=== PATIENT | male | born 1995 | race Two or more races ===

== ENCOUNTER 2024-08-10 00:55 | Emergency (ER) | payer OTHER ==
[~2024-08-10] VITALS: Ht 185.4 cm; Wt 72.6 kg
== END 2024-08-10 03:52 | disposition home or self-care (01) ==
LOC: ER 00:57
DX: M43.6 Torticollis (principal); S19.9XXA Unspecified injury of neck, initial encounter; V49.88XA Car occupant (driver) (passenger) injured in other specified transport accidents, initial encounter; Y93.89 Activity, other specified; Y92.89 Other specified places as the place of occurrence of the external cause; Y99.8 Other external cause status; R07.89 Other chest pain